=== PATIENT | female | born 1960 | race Two or more races ===

== ENCOUNTER 2023-07-11 17:21 | Emergency (ER) | payer MEDICAID, OTHER ==
[~2023-07-11] VITALS: Ht 157.5 cm; Wt 81.5 kg
[2023-07-11 18:00] VITALS: TEMP 97.8; O2SAT 98
[2023-07-11] MEDS ORDERED: ACE3T PO (21:27)
[2023-07-11] MEDS: ONDANSETRON ODT 4 MG TAB PO ONE (22:23)
[2023-07-11 22:24] VITALS: BP 139/65; PULSE 72; RESP 18
[2023-07-11] MEDS: MORPHINE SULFATE INJ 2 MG/ml SYRG IM ONE (22:24)
== END 2023-07-11 22:28 | disposition home or self-care (01) ==
LOC: ER 17:21
DX: G43.909 Migraine, unspecified, not intractable, without status migrainosus (principal); E11.9 Type 2 diabetes mellitus without complications; I10 Essential (primary) hypertension; Z90.49 Acquired absence of other specified parts of digestive tract; Z90.710 Acquired absence of both cervix and uterus
CPT/HCPCS: 70450; 96372; 99285; J2270; Q0162

== ENCOUNTER 2024-01-10 17:08 | Inpatient (IN) | payer MEDICAID ==
[~2024-01-10] VITALS: Ht 157.5 cm; Wt 74.5 kg
[~2024-01-10 17:08] MED LIST: ACE3T PO
[2024-01-10 18:14] LABS: Basophils # (auto) 0 10 ^3/uL (0-0.2); Basophils % (auto) 0.4 % (0.0-2.0); Eosinophils # (auto) 0.3 10 ^3/uL (0-0.8); Eosinophils % (auto) 2.7 % (0.0-7.0); Hematocrit 39.8 % (36.0-46.0); Hemoglobin 13.6 g/dL (12.2-16.2); Lymphocytes # (auto) 3.1 10 ^3/uL (0.4-5.4); Lymphocytes % (auto) 27.9 % (10.0-50.0); Mean Corpuscular Hemoglobin 30.5 pg (28.0-32.0); Mean Corpuscular Hgb Conc. 34.2 g/dL (32.0-36.0); Monocytes # (auto) 0.8 10 ^3/uL (0-1.3); Monocytes % (auto) 7.5 % (0.0-12.0); Neutrophils # (auto) 6.9 10 ^3/uL (1.6-8.6); Neutrophils % (auto) 61.5 % (37.0-80.0); Nucleated Red Blood Cells % 0.1 %; Platelet Count (auto) 311 10^3/uL (140-450); Red Blood Cells 4.48 10^6/uL (4.0-5.20); Red Cell Distribution Width 13.3 % (11.8-14.3); White Blood Cell 11.2 10^3/uL (4.4-10.8)
[2024-01-10 18:29] LABS: Alanine Aminotransferase 18 U/L (7-40); Albumin 4.5 g/dL (3.2-4.8); Alkaline Phosphatase 92 U/L (46-116); Anion Gap 7 (5-15); Aspartate Aminotransferase 23 U/L (13-40); BUN/Creatinine Ratio 16.9 (10.0-20.0); Blood Urea Nitrogen 13 mg/dL (9-23); Calcium 9.9 mg/dL (8.7-10.4); Carbon Dioxide 27 mmol/L (20-31); Chloride 106 mmol/L (98-107); Glucose 100 mg/dL (74-106); Sodium 140 mmol/L (136-145)
[2024-01-10 18:30] LABS: Bilirubin, Total 0.4 mg/dL (0.2-1.0)
[2024-01-10 18:58] LABS: Urine Bacteria None Seen /hpf (None Seen)
[2024-01-10 19:35] LABS: Urine Blood Negative /uL (Negative); Urine Clarity Turbid (Clear); Urine Color Yellow (Yellow); Urine Mucus FEW (None Seen); Urine Protein, UAD TRACE (Negative); Urine Urobilinogen Normal (Negative); Urine WBC 11 /hpf (0 - 5); Urine pH 6.5 (5.0-9.0)
[2024-01-10 20:10] VITALS: PULSE 68; RESP 18; O2SAT 98
[2024-01-10] MEDS: ONDANSETRON HCL 4 MG/2 ML VIAL IV ONE (20:25)
[2024-01-10] MEDS: SODIUM CHLORIDE 0.9% 1,000 ML IV ONE ×2 (20:25→23:16)
[2024-01-10] MEDS: KETOROLAC TROMETH 30 MG/ML 1ML VIAL IV ONE ×2 (20:26→21:42)
[2024-01-10] MEDS: cefTRIAXone 1GM/50ML D5W 50 ML IV ONE (21:42)
[2024-01-10] MEDS ORDERED: ONDANSETRON HCL 4 MG/2 ML VIAL IV PRN (22:15)
[2024-01-10] MEDS ORDERED: NITROGLYCERIN 0.4 MG SL TAB SL PRN (22:15)
[2024-01-10] MEDS ORDERED: DOCUSATE SOD 100 MG CAP PO PRN (22:15)
[2024-01-10] MEDS ORDERED: MORPHINE SULFATE INJ 2 MG/ml SYRG IV PRN (22:15)
[2024-01-10 22:47] LABS: Amphetamine Screen, Urine Neg (NEGATIVE); Barbiturate Scree,Urine Neg (NEGATIVE); Benzodiazephine Screen, Urine Neg (NEGATIVE); Cocaine Screen, Urine Neg (NEGATIVE)
[2024-01-10 22:48] LABS: Cannabinoid Screen, Urine Neg (NEGATIVE); Opiate Scree,Urine Neg (NEGATIVE); Phencyclidine Screen, Urine Neg (NEGATIVE)
[2024-01-10] MEDS: ENOXAPARIN SOD 40 MG/0.4 ML SYRINGE SC SCH (23:15)
[2024-01-10] MEDS: MORPHINE SULFATE INJ 2 MG/ml SYRG IV PRN (23:15)
[2024-01-10] MEDS ORDERED: DEXTROSE (50%) 50ML SYRG IV PRN (23:30)
[2024-01-11] MEDS: SODIUM CHLOR 0.9% PF (SALINE LOCK) 10ML VIAL/SYR IV SCH (05:34)
[2024-01-11] MEDS: ACCU-CHEK COMFORT CURVE STRIP VI SCH (06:09)
[2024-01-11] MEDS: InsuLIN REG 1unit/0.01ml Soln (100units/ml) SC SCH (06:09)
[2024-01-11 06:28] LABS: Basophils # (auto) 0 10 ^3/uL (0-0.2); Basophils % (auto) 0.4 % (0.0-2.0); Eosinophils # (auto) 0.4 10 ^3/uL (0-0.8); Eosinophils % (auto) 4.5 % (0.0-7.0); Hematocrit 37.1 % (36.0-46.0); Hemoglobin 12.6 g/dL (12.2-16.2); Lymphocytes # (auto) 3.6 10 ^3/uL (0.4-5.4); Lymphocytes % (auto) 40.1 % (10.0-50.0); Mean Corpuscular Hemoglobin 30.6 pg (28.0-32.0); Mean Corpuscular Hgb Conc. 33.8 g/dL (32.0-36.0); Mean Corpuscular Volume 90.4 fL (80.0-100.0); Monocytes # (auto) 0.7 10 ^3/uL (0-1.3); Monocytes % (auto) 7.5 % (0.0-12.0); Neutrophils # (auto) 4.3 10 ^3/uL (1.6-8.6); Neutrophils % (auto) 47.5 % (37.0-80.0); Nucleated Red Blood Cells % 0.1 %; Platelet Count (auto) 257 10^3/uL (140-450); Red Blood Cells 4.11 10^6/uL (4.0-5.20); Red Cell Distribution Width 13.4 % (11.8-14.3)
[2024-01-11 06:44] LABS: Alanine Aminotransferase 13 U/L (7-40); Alkaline Phosphatase 80 U/L (46-116); Anion Gap 6 (5-15); Aspartate Aminotransferase 13 U/L (13-40); BUN/Creatinine Ratio 14.1 (10.0-20.0); Blood Urea Nitrogen 10 mg/dL (9-23); Calcium 9.3 mg/dL (8.7-10.4); Carbon Dioxide 26 mmol/L (20-31); Chloride 110 mmol/L (98-107); Glucose 100 mg/dL (74-106); Potassium 4.4 mmol/L (3.5-5.1); Sodium 142 mmol/L (136-145)
[2024-01-11 06:45] LABS: Bilirubin, Total 0.6 mg/dL (0.2-1.0); Total Protein 6.9 g/dL (5.7-8.2)
[2024-01-11 07:50] VITALS: PULSE 56; RESP 14; O2SAT 97
[2024-01-11] MEDS: ERGOCALCIFEROL 50,000 UNIT(1.25MG) CAP PO SCH (08:20)
[2024-01-11 08:42] LABS: INR 1.08 (0.9-1.15); Partial Thromboplastin Time 28.6 SEC (24.5-34.5); Prothrombin Time 11.4 sec (9.3-11.8)
[2024-01-11 11:58] VITALS: BP 131/83; PULSE 65; TEMP 97.9; O2SAT 97
[2024-01-11 12:11] VITALS: BP 119/56; PULSE 57; RESP 20; TEMP 97.7; O2SAT 97
[2024-01-11] MEDS ORDERED: ACETAMINOPHEN 650 mg PER 20.3 mL UD PO PRN (15:30)
[2024-01-11 15:50] LABS: COVID19 ANTIGEN SOFIA FIA NEGATIVE (NEGATIVE)
[2024-01-11 16:23] VITALS: BP 114/66; PULSE 63; RESP 16; TEMP 97.8; O2SAT 97
[2024-01-11] MEDS: ACETAMINOPHEN 325 MG TAB PO PRN (17:54)
[2024-01-11 19:15] VITALS: PULSE 66; RESP 16; O2SAT 99
[2024-01-11] MEDS: cefTRIAXone 1GM/50ML D5W 50 ML IV SCH (21:12)
[2024-01-11] MEDS: ATORVASTATIN 20 MG TAB PO SCH (21:14)
[2024-01-12] VITALS (7 sets, daily range): BP systolic 118–134; BP diastolic 56–83; PULSE 57–65; RESP 16–24; TEMP 36.6; O2SAT 93–98
[2024-01-12] MEDS ORDERED: ATOR20TA50 PO (02:19)
[2024-01-12 07:56] LABS: Basophils # (auto) 0 10 ^3/uL (0-0.2); Basophils % (auto) 0.5 % (0.0-2.0); Chloride 110 mmol/L (98-107); Eosinophils # (auto) 0.4 10 ^3/uL (0-0.8); Eosinophils % (auto) 5.6 % (0.0-7.0); Hematocrit 39.9 % (36.0-46.0); Hemoglobin 13.4 g/dL (12.2-16.2); Mean Corpuscular Hemoglobin 30.1 pg (28.0-32.0); Mean Corpuscular Hgb Conc. 33.4 g/dL (32.0-36.0); Monocytes # (auto) 0.6 10 ^3/uL (0-1.3); Monocytes % (auto) 8.2 % (0.0-12.0); Neutrophils # (auto) 3.4 10 ^3/uL (1.6-8.6); Neutrophils % (auto) 45.7 % (37.0-80.0); Nucleated Red Blood Cells % 0.2 %; Platelet Count (auto) 296 10^3/uL (140-450); Potassium 4.1 mmol/L (3.5-5.1); Red Blood Cells 4.44 10^6/uL (4.0-5.20); Red Cell Distribution Width 13.4 % (11.8-14.3); Sodium 145 mmol/L (136-145); White Blood Cell 7.5 10^3/uL (4.4-10.8)
[2024-01-12 07:57] LABS: Anion Gap 7 (5-15); Calcium 9.7 mg/dL (8.7-10.4); Carbon Dioxide 28 mmol/L (20-31)
[2024-01-12 08:02] LABS: BUN/Creatinine Ratio 14.1 (10.0-20.0); Blood Urea Nitrogen 11 mg/dL (9-23); Glucose 96 mg/dL (74-106)
[2024-01-12] MEDS: PANTOPRAZOLE 40 MG/10 ML VIAL INJ IV SCH (12:02)
[2024-01-12] MEDS ORDERED: HYDR-4798 PO ×2 (12:34→12:39)
[2024-01-12] MEDS ORDERED: LEVO500T91 PO (15:56)
[2024-01-12] MEDS ORDERED: PANT40T PO (15:56)
[2024-01-12] MEDS ORDERED: ERGO1CAP23 PO (15:56)
== END 2024-01-12 16:15 | disposition home or self-care (01) | DRG 463 ==
LOC: ER 17:08 → OVERFLOW 22:13 → WEST WING 01-11 23:44
PROVIDERS: ADMIT Hospitalist; ATTEND Emergency Medicine
DX: N12 Tubulo-interstitial nephritis, not specified as acute or chronic (principal); K75.81 Nonalcoholic steatohepatitis (NASH); E11.9 Type 2 diabetes mellitus without complications; Z20.822 Contact with and (suspected) exposure to COVID-19; E78.5 Hyperlipidemia, unspecified; E55.9 Vitamin D deficiency, unspecified; I10 Essential (primary) hypertension; N28.1 Cyst of kidney, acquired; Z79.1 Long term (current) use of non-steroidal anti-inflammatories (NSAID); Z79.899 Other long term (current) drug therapy; Z90.710 Acquired absence of both cervix and uterus; Z80.0 Family history of malignant neoplasm of digestive organs; Z80.3 Family history of malignant neoplasm of breast
CPT/HCPCS: 36415; 74176; 80048; 80053; 80307; 81001; 82306; 82607; 82962; 83036; 83605; 84132; 84443; 85025; 85048; 85610; 85730; 87040; 87086; 87426; G0378; J1815; J1885; J2405; J2470

== ENCOUNTER 2024-07-12 12:52 | Emergency (ER) | payer MEDICAID ==
[~2024-07-12] VITALS: Ht 162.6 cm; Wt 75.0 kg
[~2024-07-12 12:52] MED LIST changes: -ACE3T PO; +ATOR20TA50 PO; +ERGO1CAP23 PO; +HYDR-4798 PO; +LEVO500T91 PO; +PANT40T PO
--- NOTE | 2024-07-12 13:15 | ED.PDOC ---
GI ASSESSMENT HPI Comments HPI: Poor Historian. 64-year-old female presents to emergency depart for epigastric pain that started last night at 8:00 p.m.. Pain is constant with the associated nausea. She had one episode of diarrhea today. She does not know the color. Denies any vomiting fever chest pain or shortness of breath. Vitals: temperature of 98.2F, respiratory rate of 16, Sp2 of 97%RA, pulse rate of 70, blood pressure of 111/71 Past Medical History: DM, HLD, gastritis Past Surgical History: left-oophorectomy, hernia repair, appendectomy REVIEW OF SYSTEMS: CONSTITUTIONAL: Denies acute: fever, diaphoresis, chills, HEAD: Denies acute: headache, photophobia Eyes: Denies acute: Double vision, vision loss, eye pain, eye discharge. EARS: Denies acute: tinnitus, hearing loss, ear discharge, ear pain, THROAT: Denies acute: sore throat, swelling, difficulty swallowing , pain with swallowing, change in voice. NECK: Denies acute: neck pain, neck swelling, stiff neck. HEART: Denies acute : chest pain, palpitations, LUNGS: Denies acute: SOB, wheezing, cough, hemoptysis ABDOMEN: Denies acute: Vomiting, melena , hematemesis, hematochezia SKIN: Denies acute: rash, redness, lesions, itchiness. EXTREMITIES: Denies acute: calf pain, numbness, tingling, weakness, denies pain in extremity. Denies acute: Low back pain. Neuro: Denies acute: focal neurological deficit, motor or sensory focal neurological deficit, tremors, seizure like activity, confusion, dizziness, change in mental status, loss of bowel or bladder function, cauda equina like symptoms. : Denies acute: dysuria, hematuria, flank pain, increase in urinary frequency. PSYCH: Denies acute: hallucination, suicidal ideation, homicidal ideation. FEMALE: Denies acute: abnormal vaginal bleeding, foul odor, unusual discharge. PHYSICAL EXAM: General: --[id number]------acute distress, awake and alert. Head: normocephalic, atraumatic. Neck: supple, trachea is midline, no swelling. Throat: Normal phonation. Eyes:, no erythema, no purulent discharge, no proptosis, no icterus. Heart: regular rate, regular rhythm, no significant murmur appreciated. Lungs: no apparent respiratory distress, Able to speak in full sentences. No wheezing, no rhonchi, no crackles. No stridors Clear to auscultation bilaterally. Abdomen: Epigastric tender to palpation, non distended, soft, no guarding, no rebound, + bowel sounds. Neuro: Awake, Alert, oriented to name, self, situation, follows commands GCS=15. Speech is normal. Skin: no petechia, no purpura, no cyanosis, non-pale, not jaundice. Lower extremities: --no - Pitting edema no deformity, no focal swelling, no calf TTP. Makes eye contact. moves all four extremities. Face: no apparent facial droop. Ambulating in the ED independently. ED COURSE: Chief Complaint: Abdominal Pain Time Seen by MD: 13:10 Primary Care Provider: BEAN Reviewed Notes: Nurses Notes, Medications, Allergies Allergies: Coded Allergies: NO KNOWN ALLERGIES (Unverified , 07/18/12) Home Meds Active Scripts Levofloxacin Hemihydrate (LEVOFLOXACIN) 500 Mg Tab, 1 TAB PO DAILY, #7 TAB Prov:VINAYRUMA RESIDENT 01/12/24 Pantoprazole Sodium Sesquihydr (Pantoprazole Sodium) 40 Mg Tab, 40 MG PO DAILY for 14 Days, #14 TAB [facility] 01/12/24 Ergocalciferol (VITAMIN D 83303 UNIT) 50,000 [place], [address] UNIT PO Q7D for 30 Days, #4 CAP Prov[facility] 01/12/24 Hydrocodone-Acetaminophen (Hydrocodone Bitartrate/AC 10-325 mg) 1 Tab Tab, 1 TAB PO Q8HP PRN for 7 Days, #21 TAB Prov:SIMONE MAYO JET DYEING MACHINE OPERATOR 01/12/24 Reported Medications Atorvastatin Calcium (ATORVASTATIN CALCIUM) 20 Mg Tab, 1 TAB PO DAILY, #30 TAB 5 Refills 01/12/24 Information Source: Patient Past Medical History PAST MEDICAL HISTORY: DM, High Lipids, HTN Surgical History: Appendectomy, Hernia Repair, Hysterectomy PAID SEARCH MANAGER History: No Pertinent PAID SEARCH MANAGER History Family History Family History: Unknown, Family hx of Cancer Social History Smoker: Non-Smoker Alcohol: Rarely Drugs: Denies Drug Use Lives In: Home Was a procedure done? Was a procedure done?: No GI differential Dx Differential Diagnosis: Other (DDX include Diverticulitis, colitis, gastroenteritis, acute abdomen, SBO, enteritis, constipation, volvulus, appendicitis, Gallbladder disease, choledocolithiasis, ascending cholangitis, pancreatitis, intraAbdominal mass/neoplasm, hepatitis, UTI, pylonephritis, kidney stone, aneurysm, dissection, Inflammatory bowel disease, gastroparesis, ischemic bowel, ) X-Ray, Labs, Meds, VS Vital Signs Date Time Temp Pulse Resp B/P (MAP) Pulse Ox O2 Delivery O2 Flow Rate FiO2 07/12/24 20: 97.7 67 18 131/78 (95) 98 97.7 07/12/24 20:26 67 18 98 Room Air* 0 21 07/12/24 15:52 98.2 66 18 146/70 (95) 96 98.2 07/12/24 15:52 66 18 96 Room Air 07/12/24 13:16 73 07/12/24 13:11 98.2 70 16 111/71 (84) 97 98.2 Lab Test 07/12/24 14:58 07/12/24 13:41 07/12/24 13:14 Range/Units Troponin I High Sensitivity < 3 L < 3 L </=34 ng/L White Blood Count 6.6 4.4-10.8 10^3/uL Red Blood Count 4.64 4.0-5.20 10^6/uL Hemoglobin 14.1 12.2-16.2 g/dL Hematocrit 42.2 36.0-46.0 % Mean Corpuscular Volume 91.0 80.0-100.0 fL Mean Corpuscular Hemoglobin 30.3 28.0-32.0 pg Mean Corpuscular Hemoglobin Concent 33.3 32.0-36.0 g/dL Red Cell Distribution Width 13.2 11.8-14.3 % Platelet Count 292 140-450 10^3/uL Mean Platelet Volume 8.9 6.9-10.8 fL Neutrophils (%) (Auto) 47.5 37.0-80.0 % Lymphocytes (%) (Auto) 41.6 10.0-50.0 % Monocytes (%) (Auto) 8.3 0.0-12.0 % Eosinophils (%) (Auto) 2.1 0.0-7.0 % Basophils (%) (Auto) 0.5 0.0-2.0 % Neutrophils # (Auto) 3.2 1.6-8.6 10 ^3/uL Lymphocytes # (Auto) 2.8 0.4-5.4 10 ^3/uL Monocytes # (Auto) 0.6 0-1.3 10 ^3/uL Eosinophils # (Auto) 0.1 0-0.8 10 ^3/uL Basophils # (Auto) 0 0-0.2 10 ^3/uL Nucleated Red Blood Cells 0.1 % Sodium Level 140 136-145 mmol/L Potassium Level 4.0 3.5-5.1 mmol/L Chloride Level 107 98-107 mmol/L Carbon Dioxide Level 25 20-31 mmol/L Anion Gap 8 5-15 Blood Urea Nitrogen 11 9-23 mg/dL Creatinine 0.71 0.550-1.02 mg/dL Glomerular Filtration Rate Calc 95 >90 mL/min BUN/Creatinine Ratio 15.5 10.0-20.0 Serum Glucose 121 H 74-106 mg/dL Lactic Acid Level 1.3 0.4-2.0 mmol/L Calcium Level 9.8 8.7-10.4 mg/dL Total Bilirubin 0.5 0.2-1.0 mg/dL Aspartate Amino Transferase (AST) 20 13-40 U/L Alanine Aminotransferase (ALT) 25 7-40 U/L Alkaline Phosphatase 75 46-116 U/L Total Protein 7.4 5.7-8.2 g/dL Albumin 4.4 3.2-4.8 g/dL Lipase 52 12-53 U/L Urine Color Light-yellow Yellow Urine Clarity Clear Clear Urine pH 6.0 5.0-9.0 Urine Specific Clay 1.019 1.001-1.035 Urine Protein Negative Negative Urine Ketones Negative Negative Urine Blood Trace H Negative /uL Urine Nitrite Negative Negative Urine Bilirubin Negative Negative Urine Urobilinogen Normal Negative mg/dL Urine Leukocyte Esterase Negative Negative /uL Urine RBC 2 0 - 4 /hpf Urine Microscopic WBC < 1 0-5 /HPF Urine Squamous Epithelial Cells Few <5 /hpf Urine Bacteria None seen None Seen /hpf Urine Glucose Normal Normal mg/dL [facility] [id number] [facility] [address] Ph: [phone] DIAGNOSTIC IMAGING Diagnostic Imaging Report : [id number] Signed PATIENT: JENNIFER LEMOS ACCT: [id number] UNIT: [id number] : 1960 LOC: ER ROOM / BED: / AGE / SEX: 64 / F ADM STATUS: REG ER SERVICE 1336 ORDERING PHYSICIAN: MELINDA WICK DO PROCEDURE(s): ABPL - CT AB PEL WO CON-NO ORAL OR IV REASON: abd pain ORDER NUMBER(s): [id number], ACCESSION NUMBER(s): [id number] CLINICAL INFORMATION: Abdominal pain. TECHNIQUE: Axial CT images of the abdomen and pelvis were obtained without IV contrast. Coronal and sagittal reformatted images were obtained, reviewed, and stored. Evaluation of the parenchymal organs is limited without IV contrast. There is dense contrast in the colon, may be from prior GI contrast examination, with no contrast in the small bowel or stomach. All CT scans at this medical facility are performed using dose modulation techniques as appropriate to a performed exam including the following: Automated exposure control was utilized; adjustment of the MA and/or KV according to patient size; and use of iterative reconstruction technique. CTDIvol = 8.19 mGy DLP = 402.83 mGy-cm COMPARISON: CT CT AB PEL WO CON-NO ORAL OR IV on DOS: 01/10/24 FINDINGS: Lung bases: Lung bases are clear. Liver: Small subcentimeter low-attenuation lesion in the left hepatic lobe, likely a cyst, but too small to characterize. Biliary: No calcified gallstones or biliary ductal dilatation. Spleen: Unremarkable. Pancreas: Grossly unremarkable in its noncontrast enhanced appearance. Adrenal glands: Unremarkable. No mass. Kidneys: No hydronephrosis. No renal or ureteral calculi. Aorta/Vascular: No aneurysm or significant calcification. Retroperitoneum: No mass or lymphadenopathy. Bowel/mesentery: No small bowel obstruction. No free air or free fluid. Appendix is not visualized. Dense contrast in the colon. Pelvic organs: Grossly unremarkable. Bladder: Unremarkable. No mass. Abdominal wall: No mass or hernia. Bones: No acute fracture or suspicious intraosseous lesion. IMPRESSION: 1. No acute abnormality identified in the abdomen or pelvis. 2. Nonacute findings as described above. ATED BY: CANELO SLADE DO DICTATED DATE/TIME: 07/12/24 1356 SIGNED BY: CANELO SLADE DO SIGNED DATE/TIME: 07/12/24 1356 CC: Time of 1ST Reevaluation: 13:10 Reevaluation 1ST: Unchanged Time of 2ND Reevaluation: 19:52 Reevaluation 2ND: Improved Patient Education/Counseling: Diagnosis, Treatment Family Education/Counseling: No Family Present Comments Patient presented with the above HPI.----abdominal pain--workup was initiated. patient was found with the above mentioned diagnosis. the following medications were ordered: please refer to order lists of meds and tests obtained by myself Dr. Wick. Patient ED course and VS have been stabilized. Patient has been reassessed in the ED and remained in a stable condition. Pertinent incidental findings were discussed with the patient and/or family. Patient/family voices understanding and is agreeable with plan. Patient has been observed in the ED adequate length of time to insure improvement/stability. Escalation of care considered: Consideration of escalation to observation or admission Patient was DISCHARGED home in a stable condition. All the reports of any imaging studies that were ordered by myself were reviewed by myself. Departure 1 Departure Time of Disposition: 19:50 Impression: Primary Impression: Epigastric abdominal pain Disposition: 01 HOME / SELF CARE / HOMELESS Condition: Stable Additional Instructions: Additional instructions: You MUST follow-up with your primary care/family doctor in 1 to 2 days. If you are unable to see your primary care/family doctor, please return to our emergency room for re-assessment and re-evaluation in 1 to 2 days. Return to the emergency room here in our facility or to the nearest ER [facility] if your symptoms change or worsen. CONSULTATIONS: you MUST Follow-up for consultation as soon as possible with: gastroenterology in 1-2 days. Please call for appointment You MUST call the consultants office yourself to make an appointment. You may need to arrange that through your insurance and/or your primary/family doctor. If you are unable to see the retail sales vitamin consultant in 1 to 2 days, you must return to our emergency room (or any other ER of your choice) for re-assessment and re- evaluation. Adequate fluid hydration. Avoid fatty greasy spicy food. Avoid caffeinated products. Avoid NSAIDs. Below is a copy of your radiological report for follow up: [address] [address] Ph: [phone] DIAGNOSTIC IMAGING Diagnostic Imaging Report : [id number] Signed PATIENT: JENNIFER LEMOS ACCT: [id number] UNIT: [id number] : 1960 LOC: ER ROOM / BED: / AGE / SEX: 64 / F ADM STATUS: REG ER SERVICE 1204 ORDERING PHYSICIAN: MELINDA WICK DO PROCEDURE(s): ABPL - CT AB PEL WO CON-NO ORAL OR IV REASON: abd pain ORDER NUMBER(s): [id number], ACCESSION NUMBER(s): [id number] CLINICAL INFORMATION: Abdominal pain. TECHNIQUE: Axial CT images of the abdomen and pelvis were obtained without IV contrast. Coronal and sagittal reformatted images were obtained, reviewed, and stored. Evaluation of the parenchymal organs is limited without IV contrast. There is dense contrast in the colon, may be from prior GI contrast examination, with no contrast in the small bowel or stomach. All CT scans at this medical facility are performed using dose modulation techniques as appropriate to a performed exam including the following: Automated exposure control was utilized; adjustment of the MA and/or KV according to patient size; and use of iterative reconstruction technique. CTDIvol = 8.19 mGy DLP = 402.83 mGy-cm COMPARISON: CT CT AB PEL WO CON-NO ORAL OR IV on DOS: 01/10/24 FINDINGS: Lung bases: Lung bases are clear. Liver: Small subcentimeter low-attenuation lesion in the left hepatic lobe, likely a cyst, but too small to characterize. Biliary: No calcified gallstones or biliary ductal dilatation. Spleen: Unremarkable. Pancreas: Grossly unremarkable in its noncontrast enhanced appearance. Adrenal glands: Unremarkable. No mass. Kidneys: No hydronephrosis. No renal or ureteral calculi. Aorta/Vascular: No aneurysm or significant calcification. Retroperitoneum: No mass or lymphadenopathy. Bowel/mesentery: No small bowel obstruction. No free air or free fluid. Appendix is not visualized. Dense contrast in the colon. Pelvic organs: Grossly unremarkable. Bladder: Unremarkable. No mass. Abdominal wall: No mass or hernia. Bones: No acute fracture or suspicious intraosseous lesion. IMPRESSION: 1. No acute abnormality identified in the abdomen or pelvis. 2. Nonacute findings as described above. ATED BY: CANELO SLADE DO DICTATED DATE/TIME: 07/12/24 1356 SIGNED BY: CANELO SLADE DO SIGNED DATE/TIME: 07/12/24 1356 CC: Discharged With: Self Critical Care Note Critical Care Time?: No I personally scribed for MELINDA WICK DO ([email or web address]) on 07/12/24 at 13:15. Prisca ctronically submitted by Haider Billings ([email or web address]). I personally scribed for MELINDA WICK DO ([email or web address]) on 07/12/24 at 17:58. Electronically submitted by Haider Billings ([email or web address]). I personally scribed for MELINDA WICK DO ([email or web address]) on 07/12/24 at 19:59. Electronically submitted by Haider Billings ([email or web address]). MELINDA WICK DO Jul 12, 2024 13:15
--- NOTE | 2024-07-12 13:17 | ECG ---
[facility] Test Date: 2024-07-12 Test Time: 13:16:20 Pat Name: JENNIFER LEMOS Department: ER Room: Gender: F Media Senior Recruiter: THEODORE : 1960 Requested By: MELINDA WICK Order Number: [id number] Reading MD: Joe Batista Measurements Intervals [place] Rate: 73 P: 60 GA: 158 QRS: 3 QRSD: 93 T: 40 QT: 403 QTc: 444 Interpretive Statements Sinus rhythm Electronically Signed On 07-14-2024 20:29:36 PDT by Joe Batista Please click the below link to view image of tracing.
[2024-07-12 13:18] LABS: Urine Bacteria None Seen /hpf (None Seen)
--- NOTE | 2024-07-12 13:59 | DVH ---
CLINICAL INFORMATION: Abdominal pain. TECHNIQUE: Axial CT images of the abdomen and pelvis were obtained without IV contrast. Coronal and s agittal reformatted images were obtained, reviewed, and stored. Evaluation of the parenchymal organs is limited without IV contrast. There is dense contrast in the colon, may be from prior GI contrast e xamination, with no contrast in the small bowel or stomach. All CT scans at this medical facility are performed using dose modulation techniques as appropriate to a performed exam including the followin g: Automated exposure control was utilized; adjustment of the MA and/or KV according to patient size; and use of iterative reconstruction technique. CTDIvol = 8.19 mGy DLP = 402.83 mGy-cm COMPARISON: CT CT AB PEL WO CON-NO ORAL OR IV on DOS: 01/10/24 FINDINGS: Lung bases: Lung bases are clear. Liver: Small subcentimeter low-attenuation lesion in the left hepatic lobe, likely a cyst, but too sm all to characterize. Biliary: No calcified gallstones or biliary ductal dilatation. Spleen: Unremarkable. Pancreas: Grossly unremarkable in its noncontrast enhanced appearance. Adrenal glands: Unremarkable. No mass. Kidneys: No hydronephrosis. No renal or ureteral calculi. Aorta/Vascular: No aneurysm or significant calcification. Retroperitoneum: No mass or lymphadenopathy. Bowel/mesentery: No small bowel obstruction. No free air or free fluid. Appendix is not visualized. D ense contrast in the colon. Pelvic organs: Grossly unremarkable. Bladder: Unremarkable. No mass. Abdominal wall: No mass or hernia. Bones: No acute fracture or suspicious intraosseous lesion. IMPRESSION: 1. No acute abnormality identified in the abdomen or pelvis. 2. Nonacute findings as described above.
[2024-07-12 14:08] LABS: Basophils # (auto) 0 10 ^3/uL (0-0.2); Basophils % (auto) 0.5 % (0.0-2.0); Eosinophils # (auto) 0.1 10 ^3/uL (0-0.8); Eosinophils % (auto) 2.1 % (0.0-7.0); Hematocrit 42.2 % (36.0-46.0); Hemoglobin 14.1 g/dL (12.2-16.2); Lymphocytes # (auto) 2.8 10 ^3/uL (0.4-5.4); Lymphocytes % (auto) 41.6 % (10.0-50.0); Mean Corpuscular Hemoglobin 30.3 pg (28.0-32.0); Mean Corpuscular Hgb Conc. 33.3 g/dL (32.0-36.0); Monocytes # (auto) 0.6 10 ^3/uL (0-1.3); Monocytes % (auto) 8.3 % (0.0-12.0); Neutrophils # (auto) 3.2 10 ^3/uL (1.6-8.6); Neutrophils % (auto) 47.5 % (37.0-80.0); Nucleated Red Blood Cells % 0.1 %; Platelet Count (auto) 292 10^3/uL (140-450); Red Blood Cells 4.64 10^6/uL (4.0-5.20); Red Cell Distribution Width 13.2 % (11.8-14.3); White Blood Cell 6.6 10^3/uL (4.4-10.8)
[2024-07-12 14:11] LABS: Alanine Aminotransferase 25 U/L (7-40); Albumin 4.4 g/dL (3.2-4.8); Alkaline Phosphatase 75 U/L (46-116); Anion Gap 8 (5-15); Aspartate Aminotransferase 20 U/L (13-40); BUN/Creatinine Ratio 15.5 (10.0-20.0); Bilirubin, Total 0.5 mg/dL (0.2-1.0); Blood Urea Nitrogen 11 mg/dL (9-23); Calcium 9.8 mg/dL (8.7-10.4); Carbon Dioxide 25 mmol/L (20-31); Chloride 107 mmol/L (98-107); Glucose 121 mg/dL (74-106); Lipase 52 U/L (12-53); Sodium 140 mmol/L (136-145); Total Protein 7.4 g/dL (5.7-8.2)
[2024-07-12 14:14] LABS: Urine Blood TRACE /uL (Negative); Urine Clarity Clear (Clear); Urine Color Light-Yellow (Yellow); Urine Protein, UAD Negative (Negative); Urine Specific Gravity 1.019 (1.001-1.035); Urine Squamous Epithelial Cell FEW /hpf (<5); Urine Urobilinogen Normal (Negative); Urine WBC < 1 /HPF (0-5)
[2024-07-12] MEDS: SODIUM CHLORIDE 0.9% 1,000 ML IV ONE (15:58)
[2024-07-12] MEDS: PANTOPRAZOLE 40 MG TAB PO ONE (15:59)
[2024-07-12] MEDS: LIDOCAINE VISCOUS 2% 15ML UD PO ONE (15:59)
[2024-07-12] MEDS: SUCRALFATE 1 GM TAB PO ONE (16:01)
[2024-07-12] MEDS: ONDANSETRON HCL 4 MG/2 ML VIAL IV ONE (16:16)
[2024-07-12 20:26] VITALS: BP 131/78; PULSE 67; RESP 18; TEMP 97.7; O2SAT 98
== END 2024-07-12 20:38 | disposition home or self-care (01) ==
LOC: ER 12:52
DX: R10.13 Epigastric pain (principal); E11.9 Type 2 diabetes mellitus without complications; E78.5 Hyperlipidemia, unspecified; I10 Essential (primary) hypertension; Z79.899 Other long term (current) drug therapy; Z90.49 Acquired absence of other specified parts of digestive tract; Z90.710 Acquired absence of both cervix and uterus; Z98.890 Other specified postprocedural states; Z90.721 Acquired absence of ovaries, unilateral
CPT/HCPCS: 36415; 74176; 80053; 81001; 83605; 83690; 84484; 85025; 93005; 96361; 96374; 99285; J2405; J7030

== ENCOUNTER 2024-08-17 09:22 | Day surgery (SDC) | payer MEDICAID ==
[2024-08-14 09:56] LABS: Basophils # (auto) 0 10 ^3/uL (0-0.2); Basophils % (auto) 0.5 % (0.0-2.0); Eosinophils # (auto) 0.2 10 ^3/uL (0-0.8); Eosinophils % (auto) 2.8 % (0.0-7.0); Hematocrit 42.3 % (36.0-46.0); Hemoglobin 14.1 g/dL (12.2-16.2); Lymphocytes # (auto) 2.4 10 ^3/uL (0.4-5.4); Lymphocytes % (auto) 37.1 % (10.0-50.0); Mean Corpuscular Hemoglobin 30.3 pg (28.0-32.0); Mean Corpuscular Hgb Conc. 33.3 g/dL (32.0-36.0); Mean Corpuscular Volume 90.8 fL (80.0-100.0); Monocytes # (auto) 0.5 10 ^3/uL (0-1.3); Monocytes % (auto) 8.4 % (0.0-12.0); Neutrophils # (auto) 3.3 10 ^3/uL (1.6-8.6); Neutrophils % (auto) 51.2 % (37.0-80.0); Platelet Count (auto) 244 10^3/uL (140-450); Red Blood Cells 4.66 10^6/uL (4.0-5.20); Red Cell Distribution Width 13.2 % (11.8-14.3); White Blood Cell 6.4 10^3/uL (4.4-10.8)
[2024-08-14 10:06] LABS: INR 0.99 (0.9-1.15); Partial Thromboplastin Time 26.2 SEC (24.5-34.5); Prothrombin Time 10.5 sec (9.3-11.8)
[2024-08-14 10:09] LABS: Alanine Aminotransferase 19 U/L (7-40); Alkaline Phosphatase 79 U/L (46-116); Anion Gap 5 (5-15); Aspartate Aminotransferase 19 U/L (13-40); BUN/Creatinine Ratio 18.4 (10.0-20.0); Blood Urea Nitrogen 16 mg/dL (9-23); Calcium 10.1 mg/dL (8.7-10.4); Carbon Dioxide 28 mmol/L (20-31); Potassium 4.2 mmol/L (3.5-5.1); Sodium 141 mmol/L (136-145); Total Protein 7.5 g/dL (5.7-8.2)
[2024-08-14 10:10] LABS: Albumin 4.6 g/dL (3.2-4.8); Bilirubin, Total 0.5 mg/dL (0.2-1.0); Chloride 108 mmol/L (98-107); Glucose 125 mg/dL (74-106)
[~2024-08-17] VITALS: Ht 157.5 cm; Wt 75.7 kg
[~2024-08-17 09:22] MED LIST changes: -ERGO1CAP23 PO; -HYDR-4798 PO; -LEVO500T91 PO; +METF-489 PO; +SUCR1SUS26 PO
[2024-08-17] MEDS: fentaNYL CITRATE 100 MCG/2 ML VL ONE (10:43)
[2024-08-17] MEDS: MIDAZOLAM HCL 2MG/2ML 2ml VIAL (1mg/ml) ONE ×2 (10:43→10:49)
--- NOTE | 2024-08-17 10:53 | DVHNC2 ---
Procedure - PROCEDURE DATE: 08/17/2024 PROCEDURE PERFORMED BY: SLICK JENKINS MD REFERRING PROVIDER: RADHA SHEPHERD MD PROCEDURE PERFORMED: 1. ESOPHAGOGASTRODUODENOSCOPY WITH MODERATE SEDATION 2. ESOPHAGOGASTRODUODENOSCOPY WITH BIOPSY PRE-PROCEDURE DIAGNOSIS: 1. LEFT UPPER QUADRANT ABDOMINAL PAIN POSTPROCEDURE DIAGNOSIS: 1. MILD EROSIVE ESOPHAGITIS WITH Z-LINE AT 37 CM 2. MILD EROSIVE GASTRITIS INDICATION FOR PROCEDURE: THE PATIENT IS AN 64-YEAR-OLD FEMALE WITH A HISTORY OF LEFT UPPER QUADRANT ABDOMINAL PAIN MEDICATIONS USED: 4MG OF VERSED AND50 MCG OF FENTANYL IV WAS GIVEN IN INCREMENTAL DOSES DETAILS OF THE PROCEDURE: INFORMED CONSENT WAS OBTAINED AFTER RISKS BENEFITS AND ALTERNATIVES WERE DISCUSSED AT LENGTH WITH THE PATIENT. THE PATIENT GAVE CONSENT TO THE PROCEDURE WELL THE MEDICATION USED FOR SEDATION. THE PATIENT WAS PLACED IN THE LEFT LATERAL DECUBITUS POSITION. AN OLYMPUS ENDOSCOPE WAS INSERTED INTO THE OROPHARYNX AND ADVANCED INTO THE ESOPHAGUS THEN INTO THE STOMACH THEN INTO THE DUODENAL BULB AND DUODENUM. THE DUODENAL BULB AND DUODENUM WERE NORMAL. THE SCOPE WAS THEN WITHDRAWN. THE STOMACH SHOWED MILD EROSIVE GASTRITIS IN THE BODY AND ANTRUM BIOPSIES WERE TAKEN AND SENT FOR PATHOLOGY. RETROFLEXION SHOWED NO ABNORMALITIES. THE SCOPE WAS THEN WITHDRAWN. THE ESOPHAGUS SHOWED MILD EROSIVE ESOPHAGITIS AND THE Z-LINE WAS AT 37 CM. THE PATIENT TOLERATED THE PROCEDURE WELL IMPRESSION: 1. MILD EROSIVE ESOPHAGITIS AND MILD EROSIVE GASTRITIS, NO FINDINGS ON ENDOSCOPY EXPLAIN THE PATIENT'S SYMPTOMS OF ABDOMINAL PAIN RECOMMENDATIONS: 1. ANTI-REFLUX PRECAUTIONS, AVOID SPICY FOOD, CAFFEINE, CHOCOLATE, TOMATOES, CI TRUS, AND ALCOHOL 2. FOLLOW UP IN GI CLINIC 3. PATIENT SHOULD BE ON A PROTON PUMP INHIBITOR DAILY, 30 MINUTES BEFORE BREAKFAST 4. CONSIDER FURTHER WORKUP WITH THE PATIENT'S SYMPTOMS OF ABDOMINAL PAIN 5. CONSIDER NON GI SOURCES SUCH MUSCULOSKELETAL CAUSES, IBS, THIS IS OTHER I WOULD LIKE TO THANK DR. SHEPHERD FOR THIS REFERRAL SLICK JENKINS MD August 17, 2024 10:53
[2024-08-17 10:57] VITALS: TEMP 97.8; O2SAT 95
[2024-08-17 11:27] VITALS: BP 110/69; PULSE 59; RESP 14; O2SAT 98
== END 2024-08-17 11:42 | disposition home or self-care (01) ==
LOC: GI 09:22
PROVIDERS: ATTEND Specialist
DX: R10.12 Left upper quadrant pain (principal); K21.00 Gastro-esophageal reflux disease with esophagitis, without bleeding; K29.50 Unspecified chronic gastritis without bleeding; E11.9 Type 2 diabetes mellitus without complications; I10 Essential (primary) hypertension; E78.00 Pure hypercholesterolemia, unspecified; F41.9 Anxiety disorder, unspecified; F32.A Depression, unspecified; Z79.899 Other long term (current) drug therapy; Z79.84 Long term (current) use of oral hypoglycemic drugs; Z90.710 Acquired absence of both cervix and uterus; Z98.890 Other specified postprocedural states; Z80.0 Family history of malignant neoplasm of digestive organs
CPT/HCPCS: 36415; 43239; 80053; 82962; 85025; 85610; 85730; 88305; 88312; 88342; J2250; J3010